=== PATIENT | female | born 1985 | race Caucasian/White ===

== ENCOUNTER 2017-11-26 18:44 | Emergency (ER) | payer OTHER ==
[~2017-11-26] VITALS: Ht 160 cm; Wt 50.4 kg
[~2017-11-26 18:44] MED LIST: AMOXICILLIN 50500 MG PO; CELEXA40 MG; CIPROFLOXACIN500 M1 PO; CLONAZEPAM PO; CLONAZEPAM0.125 MG PO; FLONASE 0.05%50 MCG NASAL; KLONIPIN; NAPROSYN500 MG PO; NOHOMEMEDICATIONS; NORCO 5-325 TA1 EACH PO; OXYCODONE HCL5 M1; PERCOCET 5-3251 EACH PO; PREDNISONE 10 M10 MG PO; SEROQUEL XR50 MG PO; SODIUM CHLORIDE1 G2 PO; SUDAFED 12 HOU120 MG PO; TESSALON PERLE100 M1 PO; VENTOLIN HFA 1818 GM INH; ZOFRAN ODT4 MG PO
[2017-11-26 18:55] LABS: URINE BILIRUBIN NEGATIVE (Negative); URINE BLOOD 1+ (Negative); URINE CLARITY CLEAR; URINE COLOR YELLOW; URINE GLUCOSE-RANDOM* NEGATIVE (Negative); URINE KETONES NEGATIVE (Negative); URINE LEUKOCYTES-REFLEX NEGATIVE (Negative); URINE NITRITE-REFLEX NEGATIVE (Negative); URINE PROTEIN (DIPSTICK) NEGATIVE (Negative); URINE SPECIFIC GRAVITY 1.015 (1.005-1.035); URINE UROBILINOGEN 0.2 E.U./dl (0.2-1.0)
[2017-11-26 19:03] LABS: CASTS None Seen /LPF (None Seen); CRYSTALS None Seen /LPF (None Seen); MUCUS >6 Heavy strn/LPF (None Seen); SQUAMOUS 4-10 Moderate /LPF (0-3); URINE RBC 3-10 Few /HPF (0-2); URINE WBC-REFLEX 0-5 Rare /HPF (0-5)
[2017-11-26] MEDS ORDERED: IBUPROFEN 600600 M1 PO (20:55)
[2017-11-26] MEDS ORDERED: ULTRAM 50MG TAB50 MG PO (21:01)
[2017-11-26 21:06] VITALS: BP 112/71
== END 2017-11-26 21:07 | disposition home or self-care (01) ==
LOC: ER 18:44
PROVIDERS: Nurse Practitioner
DX: N20.0 Calculus of kidney (principal); Z90.49 Acquired absence of other specified parts of digestive tract; Z90.710 Acquired absence of both cervix and uterus; Z88.5 Allergy status to narcotic agent; Z87.891 Personal history of nicotine dependence